=== PATIENT | male | born 1980 | race Caucasian/White ===

== ENCOUNTER 2017-11-08 09:08 | Emergency (ER) | payer OTHER ==
[2017-11-08 09:22] VITALS: BP 145/87; PULSE 106; TEMP 99.5; BMI 23.6
--- NOTE | 2017-11-08 10:02 | PDOC ---
History of Present Illness - General Chief Complaint: Cold Symptoms Stated Complaint: FEVER, BODY/HEADACHES Time Seen by Provider: 11/08/17 09:52 History Source: Patient Exam Limitations: No Limitations - History of Present Illness Initial Comments: 11/08/17 09:58 This is a 36-year-old male without significant past medical history of presents emergency Department 2 days of fevers, chills, frontal headache, body aches, nausea, sore throat, dry cough. Patient states she's been taking Advil and DayQuil [id number] to help control his headaches and fevers. His headaches and fevers have been control but return approximately every 6 hours when the medications wear off. Patient denies any chest pain, shortness of breath, vomiting, abdominal pain, diarrhea, dysuria. Past History - Past Medical History Allergies/Adverse Reactions: Allergies Allergy/AdvReac Type Severity Reaction Status Date / Time No Known Allergies Allergy Verified 11/08/17 09:19 Home Medications: Ambulatory Orders Amoxicillin - [Amoxicillin 500mg Capsule -] 500 mg PO BID #20 capsule 11/08/17 Anemia: No Asthma: No Cancer: No Cardiac Disorders: No CVA: No COPD: No CHF: No Dementia: No Diabetes: No GI Disorders: No Disorders: No HTN: No Hypercholesterolemia: No Liver Disease: No Seizures: No Thyroid Disease: No Other medical history: DENIES. - Suicide/Smoking/Psychosocial Hx Smoking History: Never smoked Number of Cigarettes Smoked Daily: 1 Information on smoking cessation initiated: No 'Breaking Loose' booklet given: 07/25/16 Hx Alcohol Use: No Drug/Substance Use Hx: No Substance Use Type: None Review of Systems - Review of Systems Able to Perform ROS?: Yes Is the patient limited Yakut proficient: No Constitutional: Yes: See HPI HEENTM: Yes: See HPI Respiratory: Yes: See HPI Cardiac (ROS): No: Symptoms Reported ABD/GI: Yes: See HPI : No: Symptoms Reported Musculoskeletal: Yes: See HPI Integumentary: No: Symptoms Reported Neurological: No: Symptoms reported *Physical Exam - Vital Signs Last Vital Signs Temp Pulse Resp BP Pulse Ox 99.5 F 106 H 19 145/87 97 11/08/17 09:19 11/08/17 09:19 11/08/17 09:19 11/08/17 09:19 11/08/17 09:19 - Physical Exam General Appearance: Yes: Appropriately Dressed. No: Apparent Distress HEENT: positive: TMs Normal, Pharyngeal Erythema, Tonsillar Erythema. negative : Tonsillar Exudate Neck: positive: Supple Respiratory/Chest: positive: Lungs Clear, Normal Breath Sounds. negative: Respiratory Distress, Accessory Muscle Use Cardiovascular: positive: Regular Rhythm, Tachycardia. negative: Murmur Gastrointestinal/Abdominal: positive: Normal Bowel Sounds, Tender. negative: Soft Musculoskeletal: positive: Normal Inspection Extremity: positive: Normal Inspection Integumentary: positive: Normal Color, Dry, Warm Neurologic: positive: Alert, Normal Response, Motor Strength 5/5 Medical Decision Making - Medical Decision Making 11/08/17 10:00 A/P: 36-year-old male with 2 days of flulike symptoms TMs pearly jackosn with appropriate light reflex. External auditory canals clear without drainage or discharge. Pharyngeal and tonsillar erythema noted. No exudate present. Uvula midline. Lungs clear to auscultation bilaterally. Tachycardic rate. S1 and S2 present. No murmur, rub or gallop present. Influenza-like illness versus streptococcal pharyngitis. Most likely streptococcal pharyngitis as worsening sore throat over the 2 days and halitosis present. Rapid strep testing. 11/08/17 11:09 Rapid strep testing positive. I will treat the patient with amoxicillin 500 mg twice a day for the next 10 days. I discussed the physical exam findings, ancillary test results and final diagnoses with the patient. I answered all of the patient's questions. The patient was satisfied with the care received and felt comfortable with the discharge plan and treatment plan. The patient will call his doctor within 96 hours to arrange follow-up and will return to the Emergency Department with any new, persistent or worsening symptoms. *DC/Admit/Observation/Transfer Diagnosis at time of Disposition: Strep pharyngitis - Discharge Dispostion Disposition: HOME Condition at time of disposition: Stable Admit: No - Prescriptions Prescriptions: Amoxicillin - [Amoxicillin 500mg Capsule -] 500 mg PO BID #20 capsule - Referrals - Patient Instructions Printed Discharge Instructions: DI for Strep Throat Additional Instructions: Rest, drink lots of fluids: Teas, water, soups, Pedialyte Saltwater gargles Throw away your toothbrush in 2 days and start using a new toothbrush Lots of handwashing and good hygiene Continue [id number] medications for symptomatic relief Tylenol or Motrin for fever and pain Amoxicillin 500mg twice a day for 10 days Followup with private physician in one to 2 days as needed Return to emergency department for worsened symptoms, fevers, dehydration - Post Discharge Activity
== END 2017-11-08 11:11 | disposition home or self-care (01) ==
LOC: JERFT 09:08
DX: J02.9 Acute pharyngitis, unspecified (principal)
CPT/HCPCS: 87070; 87077; 87430; 99281-25